=== PATIENT | female | born 1960 | race Caucasian/White ===

== ENCOUNTER 2017-01-10 15:10 | Emergency (ER) | payer OTHER, MEDICAID ==
[~2017-01-10] VITALS: Ht 157.5 cm; Wt 56.7 kg
[~2017-01-10 15:10] MED LIST: FLUO40CA6 PO
[2017-01-10 15:13] VITALS: BP 129/65
--- NOTE | 2017-01-10 18:00 | NUR ---
PT TO BED 6 AT THIS TIME.
--- NOTE | 2017-01-10 18:00 | NUR ---
Pt ambulated to bed 6.
--- NOTE | 2017-01-10 18:05 | NUR ---
56/F BIB FAMILY C/O RASH TO FACE & BODY & NON RADIATING LEFT CHEST,SOB, THROAT COMPLAINT, AND ITCHY SKIN X2 DAYS.PATIENT DENIES N/V/D; SKIN IS PINK/WARM/DRY; AAOX4 WITH EVEN AND STEADY GAIT; LUNGS CLEAR BL; HR EVEN AND REGULAR; PT DENIES ANY FEVER, OR COUGH AT THIS TIME; PATIENT STATES PAIN OF 10/10 AT THIS TIME; VSS; PATIENT POSITIONED FOR COMFORT; HOB ELEVATED; BEDRAILS UP X2; BED DOWN. ER MD MADE AWARE OF PT STATUS.
--- NOTE | 2017-01-10 19:15 | NUR ---
PT C/O SORE THROAT X 2 DAYS AND COUGHING SINCE THIS AM. PT STATES DIFFICULT TO EAT FOOD DUE TO SORE THROAT AND STATES HAS RASH ON CHEST.
--- NOTE | 2017-01-10 19:15 | NUR ---
REPORT RECEIVED FROM ESSIE MAHONEY.
--- NOTE | 2017-01-10 19:15 | NUR ---
GAVE REPORT TO ESSIE SPENCE
[2017-01-10] MEDS ORDERED: NACL 0.9% 1,000 ML IV ONE (19:40)
[2017-01-10] MEDS ORDERED: methylPREDNISolone SS 125 MG/2 ML VIAL IVP ONE (19:40)
--- NOTE | 2017-01-10 20:13 | NUR ---
LABS AND PIV STARTED. PT TOLERATED WELL. XRAY DONE AT BEDSIDE.
[2017-01-10 20:15] LABS: BASOPHILS # (AUTO) 0.2 K/uL (0.00-0.22); BASOPHILS % (AUTO) 2.7 % (0.0-2.0); EOSINOPHILS % (AUTO) 0.6 % (0.0-4.0); HEMATOCRIT 44.3 % (36-48); HEMOGLOBIN 14.8 g/dL (12.0-16.0); LYMPHOCYTES # (AUTO) 1.1 K/uL (2.5-16.5); LYMPHOCYTES % (AUTO) 18.1 % (20.5-51.1); MEAN CORPUSCULAR HEMOGLOBIN 31 pg (27-31); MEAN CORPUSCULAR HGB CONC 33 g/dL (33-37); MEAN CORPUSCULAR VOLUME 94 fL (80-94); MONOCYTES # (AUTO) 0.6 K/uL (0.8-1.0); MONOCYTES % (AUTO) 9.4 % (1.7-9.3); NEUTROPHILS # (AUTO) 4.1 K/uL (1.8-7.7); NEUTROPHILS % (AUTO) 69.2 % (42.2-75.2); PLATELET COUNT (AUTO) 186 K/uL (140-450); RED BLOOD CELL COUNT(AUTO) 4.73 MIL/uL (4.20-5.40); RED CELL DISTRIBUTION WIDTH 12.3 % (11.6-13.7)
[2017-01-10 20:26] LABS: ANION GAP 13.4 (8-16); CALCIUM 8.6 mg/dL (8.5-10.1); CARBON DIOXIDE 27.2 mmol/L (21-32); CREATININE 0.7 mg/dL (0.6-1.3); POTASSIUM 3.6 mmol/L (3.5-5.1)
[2017-01-10 20:32] LABS: ALBUMIN 3.8 g/dL (3.4-5.0); PARTIAL THROMBOPLASTIN TIME 26.8 secs (22-35.6); PROTHROMBIN TIME 9.8 secs (10.8-13.4); TOTAL BILIRUBIN 1.6 mg/dL (0.0-1.0); TOTAL PROTEIN, SERUM 7.1 g/dL (6.4-8.2)
[2017-01-10 20:32] LABS: AMPHETAMINE, URINE NEG. ng/ml (NEG <=1000); BARBITURATE, URINE NEG. ng/ml (NEG <=200); BENZODIAZEPINE, URINE NEG. ng/mL (NEG <=200); CANNABINOID, URINE NEG. ng/mL (NEG <=50); COCAINE, URINE NEG. ng/mL (NEG <=300); OPIATE, URINE NEG. ng/mL (NEG <=2000); PHENCYCLIDINE SCREEN,URINE NEG. ng/mL (NEG <=25)
[2017-01-10 21:18] VITALS: BP 122/85
== END 2017-01-10 21:18 | disposition home or self-care (01) ==
LOC: MED 15:10
DX: T63.441A Toxic effect of venom of bees, accidental (unintentional), initial encounter (principal); R03.0 Elevated blood-pressure reading, without diagnosis of hypertension; J44.9 Chronic obstructive pulmonary disease, unspecified; Y92.89 Other specified places as the place of occurrence of the external cause
CPT/HCPCS: 36415; 71010; 80053; 80305; 81002; 81025; 84484; 85025; 85610; 85730; 93005; 96361; 96374; 99285; J2930; J7030; Q0092

== ENCOUNTER 2017-07-20 17:20 | Emergency (ER) | payer OTHER, MEDICAID ==
[~2017-07-20] VITALS: Ht 157.5 cm; Wt 62.7 kg
[2017-07-20 18:23] VITALS: BP 104/75
--- NOTE | 2017-07-20 19:57 | NUR ---
PT TAKEN TO BED 1
--- NOTE | 2017-07-20 20:00 | NUR ---
56/F CAME IN W C/O 06/12 LEFT WRIST, ELBOW AND SHOULDER PAIN S/P MECHANICAL FALL FROM LADDER. DENIES LOC, HEAD TRAUMA, N/T TO LUE OR ANY OTHER INJURIES. SWELLING TO LT WRIST/HAND NOTED. PMH: OSTEOARTHRITIS, DENIES OTC
[2017-07-20] MEDS ORDERED: oxyCODONE/APAP 5/325 MG 1 TAB TAB PO ONE (20:05)
[2017-07-20] MEDS ORDERED: KETOROLAC 60 MG/2 ML VIAL IM ONE (20:05)
--- NOTE | 2017-07-20 20:48 | NUR ---
PT TAKEN TO XRAY
[2017-07-20] MEDS ORDERED: CYCLOBENZAPRINE 10 MG TAB PO ONE (21:15)
[2017-07-20 22:29] VITALS: BP 116/85
--- NOTE | 2017-07-20 22:30 | NUR ---
Patient discharged with v/s stable. Written and verbal after care instructions given and explained. Patient alert, oriented and verbalized understanding of instructions. Carried with to car. All questions addressed prior to discharge. ID band removed. Patient advised to follow up with PMD. Rx of NORCO AND IBUPROFEN given. Patient educated on indication of medication including possible reaction and side effects. SLING AND SPLINT CARE TEACHING PROVIDED. Opportunity to ask questions provided and answered.
== END 2017-07-20 22:30 | disposition home or self-care (01) ==
LOC: MED 17:20
DX: S52.502A Unspecified fracture of the lower end of left radius, initial encounter for closed fracture (principal); S52.612A Displaced fracture of left ulna styloid process, initial encounter for closed fracture; J44.9 Chronic obstructive pulmonary disease, unspecified; Z88.8 Allergy status to other drugs, medicaments and biological substances; W11.XXXA Fall on and from ladder, initial encounter; Y93.89 Activity, other specified; Y92.89 Other specified places as the place of occurrence of the external cause; Y99.8 Other external cause status
CPT/HCPCS: 29125; 73030; 73080; 73110; 96372; 99284; J1885

== ENCOUNTER 2017-07-30 13:06 | Inpatient (IN) | payer OTHER, MEDICAID ==
[~2017-07-30] VITALS: Ht 157.5 cm; Wt 59.9 kg
[2017-07-30 13:09] VITALS: BP 106/73
--- NOTE | 2017-07-30 13:20 | NUR ---
PATIENT PRESENTS TO ED WITH LEFT ANTERIOR CHEST WALL PAIN, >5 EPISODES OF WATERY STOOLS TODAY AND NAUSEA . PT STATES ; SKIN IS PINK/WARM/DRY; AAOX4 LUNGS CLEAR BL; HR EVEN AND REGULAR; PT DENIES ANY FEVER SOB, OR COUGH AT THIS TIME; PATIENT STATES PAIN OF 10/10 AT THIS TIME; VSS; PATIENT POSITIONED FOR COMFORT; HOB ELEVATED; BEDRAILS UP X2; BED DOWN. ER MD MADE AWARE OF PT STATUS.
[2017-07-30 14:11] LABS: BASOPHILS # (AUTO) 0.3 K/uL (0.00-0.22); HEMATOCRIT 39.8 % (36-48); HEMOGLOBIN 13.2 g/dL (12.0-16.0); LYMPHOCYTES # (AUTO) 0.7 K/uL (2.5-16.5); MEAN CORPUSCULAR HEMOGLOBIN 32 pg (27-31); MEAN CORPUSCULAR HGB CONC 33 g/dL (33-37); MEAN CORPUSCULAR VOLUME 96 fL (80-94); MONOCYTES # (AUTO) 0.3 K/uL (0.8-1.0); PLATELET COUNT (AUTO) 269 K/uL (140-450); RED BLOOD CELL COUNT(AUTO) 4.16 MIL/uL (4.20-5.40); RED CELL DISTRIBUTION WIDTH 14.8 % (11.6-13.7); WHITE BLOOD COUNT (AUTO) 4.3 K/uL (4.8-10.8)
[2017-07-30 14:21] LABS: BARBITURATE, URINE NEG. ng/ml (NEG <=200); BENZODIAZEPINE, URINE NEG. ng/mL (NEG <=200); CANNABINOID, URINE NEG. ng/mL (NEG <=50); COCAINE, URINE NEG. ng/mL (NEG <=300); OPIATE, URINE NEG. ng/mL (NEG <=2000); PHENCYCLIDINE SCREEN,URINE NEG. ng/mL (NEG <=25)
[2017-07-30 14:36] LABS: ANION GAP 12.2 (8-16); CARBON DIOXIDE 24.2 mmol/L (21-32); CREATININE 0.6 mg/dL (0.6-1.3); POTASSIUM 3.4 mmol/L (3.5-5.1)
[2017-07-30 14:44] LABS: ALBUMIN 3.3 g/dL (3.4-5.0); TOTAL BILIRUBIN 1.2 mg/dL (0.0-1.0)
--- NOTE | 2017-07-30 15:03 | NUR ---
PT AWAKEN BY MD--- C/O FEELING ANXIOUS, REQUESTING ATIVAN---MD DENIED PT HAS BEEN RESTING WITH OU CLOSED, NO S/S RESP DISTRESS, NO TACHYCARDIA, NO TREMORS NOTED AT THIS TIME. WILL CONTINUE TO OBSERVE FOR PAIN CONTROL
[2017-07-30] MEDS ORDERED: ONDANSETRON 4 MG/2 ML VIAL IVP PRN (15:35)
[2017-07-30] MEDS ORDERED: DEXT 5% /NACL 0.9% 1,000 ML IV SCH (15:35)
[2017-07-30] MEDS ORDERED: HYDROcodone/APAP 5/325 MG 1 TAB TAB PO PRN (15:35)
[2017-07-30] MEDS ORDERED: ZOLPIDEM 5 MG TAB PO PRN (15:35)
[2017-07-30] MEDS ORDERED: ALUMINUM HYD/MAG/SIMETHICONE 30 ML UDC PO PRN (15:35)
[2017-07-30] MEDS ORDERED: NITROGLYCERIN 0.4 MG TAB SL PRN (15:35)
[2017-07-30] MEDS ORDERED: ACETAMINOPHEN 325 MG TAB PO PRN (15:35)
--- NOTE | 2017-07-30 16:16 | NUR ---
Pt transferred to Tele via [facility] REPORT GIVEN TO Barbara-A REPORT GIVEN TO DIONI FOUNTAIN
[2017-07-30] MEDS ORDERED: ECOTRIN 81 MG TABEC PO ONE (16:25)
[2017-07-30 16:35] VITALS: BP 126/86
--- NOTE | 2017-07-30 16:35 | NUR ---
RECEIVED PT REPORT FROM NIGHT NURSE. PT IS AAOX4 AND SHOWS NO S/S OF ACUTE DISTRESS ON RA. PT STATES CHEST PAIN, AND WRIST PAIN BOTH 06/12 WILL MEDICATE WITH AVAILABLE PRN PAIN MEDICATION, NOTED CAST ON THE LEFT ARM OTHERWISE SKIN IS INTACT, ON TELE MONITOR. IV NOTED ON THE RT HAND WITH IVF'S INFUSING WELL WITH NO SIGNS OF INFILTRATION. DISCUSSED POC WITH PT AND SHE VERBALIZED UNDERSTANDING. THE BED IS IN LOW POSITION WITH CALL LIGHT WITHIN REACH. WILL CONTINUE TO MONITOR. Addendum: 07/30/17 at 1852 by Mamie Mccrary RN RECEIVED REPORT FROM ER NURSE. NOT NIGHT NURSE.
[2017-07-30] MEDS ORDERED: ASPIRIN 81 MG TAB.CHEW PO SCH (17:00)
[2017-07-30] MEDS: LORazepam 1 MG TAB PO PRN (18:14)
--- NOTE | 2017-07-30 18:16 | NUR ---
ADMINISTERED ATIVAN 1 MG PO FOR PT C/O ANXIETY.
[2017-07-30] MEDS ORDERED: PROMETHAZINE 25 MG/ML VIAL IVP PRN (18:25)
--- NOTE | 2017-07-30 18:35 | NUR ---
PT IS AAOX4 AND SHOWS NO S/S OF ACUTE DISTRESS ON ROOM AIR. PT DENIES PAIN AND SOB. ALL NEEDS MET AT THIS TIME. WILL CONTINUE TO MONITOR.
--- NOTE | 2017-07-30 18:40 | NUR ---
RECEIVED ORDERS FROM DR BRANDT REGARDING PT IVF'S TO D5 1/2 NS AT 100 ML/HR, K RIDER X ONCE, AND DC ZOFRAN TO PHENERGAN 15 MG IVP Q6H. WILL PLACE ORDERS.
[2017-07-30] MEDS ORDERED: KCL 20 MEQ/WATER INJ PREMIX 200 ML IV SCH (19:00)
[2017-07-30] MEDS: MORPHINE SULFATE 2 MG/ML SYR IVP PRN (19:02)
[2017-07-30] MEDS: DEXT 5% / NACL 0.45% 1,000 ML IV SCH (19:02)
--- NOTE | 2017-07-30 19:30 | NUR ---
PT REPORT GIVEN AT BEDSIDE TO NIGHT NURSE PT ENDORSED IN STABLE CONDITION.
--- NOTE | 2017-07-30 19:31 | NUR ---
RECD. RESTING IN BED, AWAKE, A/OX2. RESPIRATION EVEN AND UNLABORED. K-RIDER 20 MEQ INFUSING, RIGHT HAND G22. REORIENTED TO HOSPITAL SETTING. LEFT ARM WITH CAST. PAIN IN THE LEFT ARM 02/10, WAS MEDICATED BY AM NURSE AT 1902. PLAN OF CARE FOR THE NIGHT DISCUSSED, AGREED. SAFETY MEASURES ENFORCED. WANTS SLEEPING PILL, STATED UNABLE TO SLEEP FOR A COUPLE OF DAYS, WILL MEDICATE ORDERED.
[2017-07-30 20:00] VITALS: BP 117/70
--- NOTE | 2017-07-30 20:00 | NUR ---
COMPLAINING OF PAIN IN THE IV SITE, EXPLAINED IT IS DUE TO THE K RIDER. APPLIED COLD COMPRESS TO THE IV SITE TO DECREASE PAIN.
[2017-07-30] MEDS: LORazepam 1 MG TAB PO SCH (20:30)
--- NOTE | 2017-07-30 20:30 | NUR ---
COMPLAINING OF UNABLE TO SLEEP FOR TWO DAYS NOW, MEDICATED WITH AMBIEN 5 MG. ORDERED.
--- NOTE | 2017-07-30 21:30 | NUR ---
STILL AWAKE, COMPLAINING OF MORPHINE DOES NOT TAKE AWAY HER PAINS COMPLETELY. WILL INFORM .
--- NOTE | 2017-07-30 22:00 | NUR ---
CRYING COMPLAINING OF PAIN IN THE IV SITE, WILL CALL MD TO CHANGED K RIDER TO PO MEDICATION.
[2017-07-30] MEDS ORDERED: POTASSIUM CHLORIDE 10 MEQ TABER PO SCH (22:30)
[2017-07-30 23:14] LABS: CREATINE KINASE MB 0.6 ng/mL (0-3.6)
[2017-07-31] VITALS: BP 124/92
[2017-07-31] MEDS: MORPHINE SULFATE 2 MG/ML SYR IVP PRN (00:47)
[2017-07-31] MEDS: LORazepam 1 MG TAB PO PRN (01:01)
--- NOTE | 2017-07-31 01:01 | NUR ---
WITH ANXIETY, MEDICATED WITH ATIVAN 1 MG. PO.
--- NOTE | 2017-07-31 02:05 | NUR ---
NO ANXIETY, SLEEPING COMFORTABLY.
[2017-07-31 04:00] VITALS: BP 121/74
[2017-07-31] MEDS: DEXT 5% / NACL 0.45% 1,000 ML IV SCH ×2 (04:37→06:07)
[2017-07-31] MEDS: LORazepam 1 MG TAB PO SCH ×2 (06:06→12:10)
[2017-07-31 06:21] LABS: HEMATOCRIT 38.1 % (36-48); MEAN CORPUSCULAR HEMOGLOBIN 33 pg (27-31); MEAN CORPUSCULAR HGB CONC 34 g/dL (33-37); MEAN CORPUSCULAR VOLUME 96 fL (80-94); PLATELET COUNT (AUTO) 229 K/uL (140-450); RED BLOOD CELL COUNT(AUTO) 3.97 MIL/uL (4.20-5.40); RED CELL DISTRIBUTION WIDTH 14.1 % (11.6-13.7); WHITE BLOOD COUNT (AUTO) 5.8 K/uL (4.8-10.8)
[2017-07-31 06:45] LABS: ANION GAP 9.6 (8-16); CARBON DIOXIDE 26.1 mmol/L (21-32); CREATININE 0.6 mg/dL (0.6-1.3); POTASSIUM 3.7 mmol/L (3.5-5.1)
[2017-07-31 06:53] LABS: MAGNESIUM 1.4 mg/dL (1.8-2.4); PHOSPHORUS 2.9 mg/dL (2.5-4.9)
[2017-07-31 06:56] LABS: EOSINOPHILS % (MANUAL) 2 % (0-4); LYMPHOCYTES % (MANUAL) 36 % (20-46); MONOCYTES % (MANUAL) 6 % (5-12)
--- NOTE | 2017-07-31 06:57 | NUR ---
ABLE TO SLEEP WELL. CONDITION REMAIN STABLE. WILL ENDORSE TO AM NURSE FOR CONTINUITY OF CARE.
--- NOTE | 2017-07-31 07:05 | NUR ---
RECIEVED REPORT FROM CORROSION ENGINEER NURSE. PATIENT IS SLEEPING, AROUSABLE BY VOICE. NO DISTRESS NOTED. IN STABLE CONDITION. RESPIRATIONS EVEN, UNLABORED ON ROOM AIR. AAOX2, CALM, COOPERATIVE, SKIN COLOR APPROPRIATE TO ETHNICITY, WARM TO TOUCH. SKIN IS INTACT. NO PERIPHERAL EDEMA NOTED. ABDOMEN SOFT, NON-DISTENDED. LUNGS CTA ON ALL LOBES. IV SITE IS INTACT, PATENT, AND INFUSING IVF ORDERS. DENIES ANY PAIN AT THIS TIME. REVIEWED PLAN OF CARE WITH PATIENT. PATIENT VERBALIZED UNDERSTANDING. SAFETY MEASURES IN PLACE, CALL LIGHT WITHIN REACH, FALL PREVENTIONS IN PLACE. WILL CONTINUE TO MONITOR.
[2017-07-31 07:07] LABS: CREATINE KINASE MB 0.4 ng/mL (0-3.6)
[2017-07-31 08:00] VITALS: BP 111/64
[2017-07-31] MEDS ORDERED: THIAMINE 100 MG TAB PO SCH (09:00)
[2017-07-31] MEDS ORDERED: FOLIC ACID 1 MG TAB PO SCH (09:00)
[2017-07-31] MEDS ORDERED: MULTIVITAMIN 1 TAB PO SCH (09:00)
[2017-07-31] MEDS ORDERED: DOCUSATE SODIUM 100 MG GELCAP PO SCH (09:00)
[2017-07-31] MEDS ORDERED: ASPIRIN 81 MG TAB.CHEW PO SCH (09:00)
--- NOTE | 2017-07-31 09:08 | NUR ---
PATIENT SITTING IN BED WITH BREAKFAST TRAY IN FRONT. NO DISTRESS NOTED. DENIES ANY PAIN AT THIS TIME. RESPIRATIONS EVEN, UNLABORED, ON ROOM AIR. CONDITION UNCHANGED. MEDICATIONS DUE GIVEN. SAFETY MEASURES IN PLACE, CALL LIGHT WITHIN REACH, FALL PREVENTIONS IN PLACE. WILL CONTINUE TO MONITOR.
--- NOTE | 2017-07-31 09:10 | NUR ---
PATIENT HAS BEEN SCREENED AND CATEGORIZED HIGH NUTRITION RISK. PATIENT WILL BE SEEN WITHIN 1-2 DAYS OF ADMISSION. 07/31/17-08/01/[address]
--- NOTE | 2017-07-31 11:30 | NUR ---
PATIENT SITTING IN BED WATCHING TV. NO DISTRESS NOTED. PAIN WITHIN TOLERABLE AT THIS TIME. CONDITION UNCHANGED. RESPIRATIONS EVEN, UNLABORED ON ROOM AIR. SAFETY MEASURES IN PLACE, CALL LIGHT WITHIN REACH. WILL CONTINUE TO MONITOR.
[2017-07-31 12:00] VITALS: BP 132/82
--- NOTE | 2017-07-31 12:15 | NUR ---
PATIENT SITTING IN BED WATCHING TV WITH COMPLAINTS OF PAIN, WILL MEDICATE WITH NORCO. NO DISTRESS NOTED. CONDITION UNCHANGED. SAFETY MEASURES IN PLACE, CALL LIGHT WITHIN REACH. WILL CONTINUE TO MONITOR.
--- NOTE | 2017-07-31 12:17 | NUR ---
CM NOTE PER GAS DISTRIBUTION AND EMERGENCY CLERK JESSICA, REVIEWS SHOULD ONLY BE SENT TO [facility] [phone] # [phone]. INITIAL REVIEW FAXED TO [facility] [phone] # [phone]. RECEIVED CALL FROM [facility] [phone] WHO SAID THEY WANT TO TRANSFER THEIR PATIENT TO THEIR CONTRACTED FACILITY, [facility]. I INFORMED DR. Donny BRANDT # [phone] AND HE SAID PATIENT IS STABLE FOR TRANSFER TO CONTRACTED FACILITY. RECEIVED ORDER TO TRANSFER PATIENT TO CONTRACTED FACILITY. PER [facility] THEY ARE LOOKING FOR A BED IN [facility] AND ONCE A BED IS AVAILABLE THEY WILL GIVE OUR HOSPITAL A CALL. I GAVE HIM THE NUMBER TO THE NURSING FLOOR AND CHARGE NURSE WHERE PATIENT IS IN CASE QA BED BECOMES AVAILABLE AT A LATER TIME TODAY. CHARGE NURSE PATRICIA AND PATIENT AWARE.
--- NOTE | 2017-07-31 13:09 | NUR ---
CM NOTE PER [facility] PH# [phone], PATIENT IS GOING TO [facility] [address] [facility] [address], [address], ACCEPTING DR. KARLA QUEZADA, FOR MED TRANSPORTATION [facility] AUTH# [id number]. PER CHARGE NURSE PATRICIA, PATIENT DOES NOT WANT TO GO TO [facility] AND WANTS TO GO AMA. I INFORMED [facility]. PER [facility] KOTHAR[facility], TO CALL/INFORM [facility] ONCE PATIENT IS PHYSICALLY OUT OF THE HOSPITAL. I ALSO GAVE ORVILLE KOTHARI THE NUMBER TO THE CHARGE NURSE TO THE NURSING FLOOR WHERE THE PATIENT IS. CHARGE NURSE PATRICIA AWARE.
--- NOTE | 2017-07-31 13:10 | NUR ---
PATIENT IS SITTING IN BED ALL DRESSED UP WITH SISTER AT BEDSIDE. PATIENT DOES NOT WANT TO BE TRANSFERRED TO CONTRACTED HOSPITAL AT [facility] FOR CONTINUITY OF CARE. PATIENT WISHES TO GO BACK TO [facility] INSTEAD. PATIENT WISHES TO LEAVE [facility]MA. EXPLAINED TO PATIENT/SISTER THE RISKS OF LEAVING [place]. THEY VERBALIZED UNDERSTANDING AND WISHED TO PROCEED. REMOVED IV SITE WITH MINIMAL BLOOD AND LUMEN COMPLETELY INTACT. ID BANDS REMOVED. PATIENT SIGNED AMA FORM AND ATTENDING MD, ALREADY AWARE OF PATIENT WANTING TO LEAVE [place]. PATIENT ESCORTED DOWN TO LOBBY VIA AMBULATION WITH STEADY GAIT. PATIENT LEFT AMA IN STABLE CONDITION WITH SISTER DRIVING HER HOME.
== END 2017-07-31 13:15 | disposition left against medical advice (07) | DRG 313 ==
LOC: MED 13:06 → MTU 15:42
PROVIDERS: ADMIT Preventive Medicine Preventive Medicine/Occupational Environmental Medicine; ATTEND Preventive Medicine Preventive Medicine/Occupational Environmental Medicine
DX: R07.89 Other chest pain (principal); I25.10 Atherosclerotic heart disease of native coronary artery without angina pectoris; J18.9 Pneumonia, unspecified organism; F10.229 Alcohol dependence with intoxication, unspecified; F32.9 Major depressive disorder, single episode, unspecified; F41.9 Anxiety disorder, unspecified; J44.9 Chronic obstructive pulmonary disease, unspecified; G47.00 Insomnia, unspecified; K29.20 Alcoholic gastritis without bleeding; G89.29 Other chronic pain; Z88.8 Allergy status to other drugs, medicaments and biological substances; Z79.899 Other long term (current) drug therapy
CPT/HCPCS: 36415; 80048; 80053; 80305; 82550; 82553; 83690; 83735; 84100; 84484; 85025; 93005; 99285; G0482; J2270; J3480

== ENCOUNTER 2018-09-09 17:01 | Emergency (ER) | payer OTHER, MEDICAID ==
[~2018-09-09] VITALS: Ht 157.5 cm; Wt 63.5 kg
--- NOTE | 2018-09-09 17:24 | NUR ---
PT BIBA BLS TO ER BED 04
[2018-09-09 17:25] VITALS: BP 140/96
--- NOTE | 2018-09-09 17:35 | NUR ---
PATIENT BIB EMS, PATIENT IS REQUESTING HELP, CALLED 911, PATIENT STATES ETOH INTOXICATION FOR 5 DAYS STRAIGHT. PATIENT STATES SHE HAS BEEN DRINKING DUE TO BACK PAIN, REPORTS HAVING ATHRITIS IN HER SPINE. N/V/D, WEAKNESS, DIZZINESS, FELLS HANDS TREMBLE, HEADACHE 10/10 X 1 DAY. PATIENT DENIES SOB, CP, COUGH, ABDOMINAL DISCOMFORT. PT.IS ALERT BUT UNAWARE OF TIME OR DATE, UNSTEADY GAIT, SAFETY PRECAUTIONS IN PLACE.
--- NOTE | 2018-09-09 17:58 | NUR ---
LAB AT BEDSIDE.
[2018-09-09 18:12] LABS: BASOPHILS # (AUTO) 0.1 K/uL (0.00-0.22); HEMATOCRIT 45.5 % (36-48); HEMOGLOBIN 14.9 g/dL (12.0-16.0); LYMPHOCYTES # (AUTO) 1.5 K/uL (2.5-16.5); LYMPHOCYTES % (AUTO) 28.9 % (20.5-51.1); MEAN CORPUSCULAR HEMOGLOBIN 30 pg (27-31); MEAN CORPUSCULAR HGB CONC 33 g/dL (33-37); MEAN CORPUSCULAR VOLUME 92.8 fL (80-94); MONOCYTES # (AUTO) 0.4 K/uL (0.8-1.0); MONOCYTES % (AUTO) 8.2 % (1.7-9.3); NEUTROPHILS # (AUTO) 3.2 K/uL (1.8-7.7); NEUTROPHILS % (AUTO) 61.9 % (42.2-75.2); PLATELET COUNT (AUTO) 245 K/uL (140-450); RED CELL DISTRIBUTION WIDTH 13.4 % (11.6-13.7); WHITE BLOOD COUNT (AUTO) 5.2 K/uL (4.8-10.8)
[2018-09-09 18:28] LABS: ANION GAP 14.3 (8-16); CARBON DIOXIDE 28.1 mmol/L (21-32); CREATININE 0.6 mg/dL (0.6-1.3); POTASSIUM 3.4 mmol/L (3.5-5.1)
--- NOTE | 2018-09-09 19:10 | NUR ---
Note monse in EDM - 09/09/18 at 1924 by [email or web address] PATIENT STATES SHE IS PAIN BACK 05/13, PATIENT POSITION CHANGEG. AWARE OF PAIN. NO FURTHER ORDERS.
--- NOTE | 2018-09-09 19:10 | NUR ---
PATIENT STATES SHE IS IN PAIN BACK 05/13, PATIENT POSITION CHANGED. MD AWARE OF PAIN. NO FURTHER ORDERS.
[2018-09-09] MEDS ORDERED: NACL 0.9% 2,000 ML IV ONE (20:35)
[2018-09-09] MEDS ORDERED: PROMETHAZINE 25 MG/ML VIAL IVP ONE (20:35)
[2018-09-09] MEDS ORDERED: METOCLOPRAMIDE 10 MG/2 ML INJ VIAL IVP ONE (20:35)
--- NOTE | 2018-09-09 21:03 | NUR ---
Dr. Mac evaluating patient at bedside.
[2018-09-09] MEDS ORDERED: LORazepam 2 MG/ML VIAL IVP ONE (21:05)
[2018-09-09 21:18] LABS: ACETAMINOPHEN < 0.5 ug/ml (10-30)
[2018-09-09 21:19] LABS: ASPARTATE AMINOTRANSFERASE 40 U/L (15-37); BILIRUBIN,DIRECT 0.2 mg/dL (0.0-0.3); SALICYLATE < 2.8 mg/dL (2.8-20.0); TOTAL BILIRUBIN 0.9 mg/dL (0.0-1.0)
--- NOTE | 2018-09-09 21:19 | NUR ---
PT RETURN FROM RADIOLOGY
[2018-09-09 21:20] LABS: ALBUMIN 3.7 g/dL (3.4-5.0); MAGNESIUM 2.2 mg/dL (1.8-2.4)
--- NOTE | 2018-09-09 21:24 | NUR ---
Pt report given to LOUISA FOUNTAIN. Transfer of care at this time.
--- NOTE | 2018-09-09 21:25 | NUR ---
ASSUMED CARE OF PT AT THIS TIME. PT AWAITS CT RESULTS AND MD DISPOSITION. LORA. VSS. WILL CONTINUE TO MONITOR.
[2018-09-09 21:44] LABS: LIPASE 259 U/L (73-393)
[2018-09-09] MEDS ORDERED: CALCIUM GLUCONATE 10% 1000 MG/10 ML VIAL IVP ONE (22:00)
[2018-09-09 22:04] LABS: APPEARANCE,URINE CLEAR (CLEAR); BILIRUBIN,URINE NEGATIVE (NEGATIVE); BLOOD, URINE 1+ (NEGATIVE); COLOR,URINE YELLOW (YELLOW); LEUKOCYTE ESTERASE ,URINE 1+ (NEGATIVE); NITRITE, URINE NEGATIVE (NEGATIVE); UGLUCOSE NEGATIVE (NEGATIVE)
[2018-09-09 22:05] LABS: BARBITURATE, URINE NEG. ng/ml (NEG <=200); BENZODIAZEPINE, URINE NEG. ng/mL (NEG <=200); CANNABINOID, URINE NEG. ng/mL (NEG <=50); COCAINE, URINE NEG. ng/mL (NEG <=300); OPIATE, URINE NEG. ng/mL (NEG <=2000); PHENCYCLIDINE SCREEN,URINE NEG. ng/mL (NEG <=25)
[2018-09-09 22:26] LABS: RBC,URINE 0-5 (RARE) /HPF (0-5); WBC,URINE 0-5 (RARE) /HPF (0-5)
[2018-09-09 22:55] VITALS: BP 133/91
--- NOTE | 2018-09-09 22:55 | NUR ---
Patient discharged with v/s stable. Written and verbal after care instructions given and explained. Patient alert, oriented and verbalized understanding of instructions. Ambulatory with steady gait. All questions addressed prior to discharge. ID band removed. Patient advised to follow up with PMD. Rx of CHLORDIAZEPOXIDE given. Patient educated on indication of medication including possible reaction and side effects. Opportunity to ask questions provided and answered.
== END 2018-09-09 22:55 | disposition home or self-care (01) ==
LOC: MED 17:01
DX: E83.51 Hypocalcemia (principal); F10.129 Alcohol abuse with intoxication, unspecified; F41.9 Anxiety disorder, unspecified; J44.9 Chronic obstructive pulmonary disease, unspecified; I51.9 Heart disease, unspecified; F32.9 Major depressive disorder, single episode, unspecified; Z88.8 Allergy status to other drugs, medicaments and biological substances; Y90.8 Blood alcohol level of 240 mg/100 ml or more
CPT/HCPCS: 36415; 74176; 80048; 80076; 80305; 81001; 82247; 82248; 83690; 83735; 84484; 85025; 87086; 93005; 96374; 96375; 99284; G0480; G0482; J0610; J2060; J2550; J2765; J7030

== ENCOUNTER 2018-10-11 08:55 | Inpatient (IN) | payer OTHER, MEDICAID ==
[~2018-10-11] VITALS: Ht 165.1 cm; Wt 65.8 kg
--- NOTE | 2018-10-11 08:57 | NUR ---
PT BIBA ALS TO BED 4
[2018-10-11 08:58] VITALS: BP 121/81
[2018-10-11] MEDS ORDERED: NACL 0.9% 1,000 ML IV ONE (09:15)
--- NOTE | 2018-10-11 09:15 | NUR ---
patient unable to urinate at this time.
--- NOTE | 2018-10-11 09:20 | NUR ---
58 yo f biba [facility] als w/ c/o sternal wall CP since last night, pt states that it feels like an anxiety attack. reports that her arms, fingers, and toes feel numb and tingly. pt reports that her last drink was sometime this morning, and she was drinking vodka. pt reports drinking binder since sunday, hard liquor only. pt tachy 110. NSR on 12 lead ekg in the field. pt is slurring words and rambling during triage assessment. PERRLA intact. pt reports that she has been vomiting blood intermittently, hx of stomach ulcers. pt complaining of L upper abd and flank pain. abd soft, non-tender. er md notified of pt status. pt needs met, safety precautions in place. will continue to monitor.
--- NOTE | 2018-10-11 09:30 | NUR ---
RADIOLOGY TRANSPORTER AT BEDSIDE.
--- NOTE | 2018-10-11 09:31 | NUR ---
IV STARTED ON PATIENT IN RAC NO COMPLAINTS OF PAIN WHEN FLUSHED, PATENT NO SWEELING OR REDNESS NOTED. GOOD BLOOD RETURN NOTED.
[2018-10-11] MEDS ORDERED: LORazepam 2 MG/ML VIAL IVP ONE ×2 (09:35→11:50)
[2018-10-11 09:39] LABS: BASOPHILS # (AUTO) 0.1 K/uL (0.00-0.22); BASOPHILS % (AUTO) 0.6 % (0.0-2.0); HEMOGLOBIN 15.1 g/dL (12.0-16.0); LYMPHOCYTES # (AUTO) 2.1 K/uL (2.5-16.5); LYMPHOCYTES % (AUTO) 12.3 % (20.5-51.1); MEAN CORPUSCULAR HEMOGLOBIN 30 pg (27-31); MEAN CORPUSCULAR HGB CONC 33 g/dL (33-37); MEAN CORPUSCULAR VOLUME 92.3 fL (80-94); MONOCYTES # (AUTO) 0.6 K/uL (0.8-1.0); MONOCYTES % (AUTO) 3.2 % (1.7-9.3); NEUTROPHILS # (AUTO) 14.6 K/uL (1.8-7.7); NEUTROPHILS % (AUTO) 83.9 % (42.2-75.2); PLATELET COUNT (AUTO) 311 K/uL (140-450); RED BLOOD CELL COUNT(AUTO) 4.98 MIL/uL (4.20-5.40); RED CELL DISTRIBUTION WIDTH 14.5 % (11.6-13.7); WHITE BLOOD COUNT (AUTO) 17.4 K/uL (4.8-10.8)
[2018-10-11 09:53] LABS: ANION GAP 24.4 (8-16); CHLORIDE 106 mmol/L (98-107); CREATININE 0.8 mg/dL (0.6-1.3); GFR ARICAN-AMERICAN 95 mL/min (>90); GLUCOSE 86 mg/dL (74-106); POTASSIUM 3.4 mmol/L (3.5-5.1); SODIUM SERUM 140 mmol/L (136-145); UREA NITROGEN, BLOOD 19 mg/dL (7-18)
[2018-10-11 09:59] LABS: ALBUMIN 3.8 g/dL (3.4-5.0); ASPARTATE AMINOTRANSFERASE 49 U/L (15-37); PROTHROMBIN TIME 10.1 secs (10.8-13.4); TOTAL BILIRUBIN 1.2 mg/dL (0.0-1.0)
[2018-10-11 10:00] LABS: ACETAMINOPHEN < 0.5 ug/ml (10-30); SALICYLATE < 2.8 mg/dL (2.8-20.0)
[2018-10-11 10:33] LABS: BILIRUBIN,URINE NEGATIVE (NEGATIVE); COLOR,URINE YELLOW (YELLOW); LEUKOCYTE ESTERASE ,URINE TRACE (NEGATIVE); NITRITE, URINE NEGATIVE (NEGATIVE); UGLUCOSE NEGATIVE (NEGATIVE)
[2018-10-11 10:34] LABS: BARBITURATE, URINE NEG. ng/ml (NEG <=200); BENZODIAZEPINE, URINE NEG. ng/mL (NEG <=200); CANNABINOID, URINE NEG. ng/mL (NEG <=50); COCAINE, URINE NEG. ng/mL (NEG <=300); OPIATE, URINE NEG. ng/mL (NEG <=2000); PHENCYCLIDINE SCREEN,URINE NEG. ng/mL (NEG <=25)
[2018-10-11 10:52] LABS: APPEARANCE,URINE CLEAR (CLEAR); BLOOD, URINE 1+ (NEGATIVE); RBC,URINE 0-5 (RARE) /HPF (0-5); WBC,URINE 0-5 (RARE) /HPF (0-5)
--- NOTE | 2018-10-11 11:18 | NUR ---
patient sleeping in bed.
--- NOTE | 2018-10-11 11:30 | NUR ---
patient complaining about shaking due to anxiety. Dr. Corey made aware
--- NOTE | 2018-10-11 12:45 | NUR ---
PATIENT SLEEPING IN BED.
--- NOTE | 2018-10-11 13:52 | NUR ---
NO NEEDS STATED AT THIS TIME.
--- NOTE | 2018-10-11 15:38 | NUR ---
SPOKE WITH PATIENTS SISTER, ELSIE SLADE, AT #[phone]. INFORMED HER THAT I COULD NOT GIVE ANY INFORMATION OVER THE PHONE. SHE STATED UNDERSTANDING AND SAID SHE WOULD TRY AND COME BY THE HOSPITAL.
[2018-10-11] MEDS ORDERED: DEXT 5% /NACL 0.9% 1,000 ML IV SCH (15:41)
[2018-10-11] MEDS ORDERED: ZOLPIDEM 5 MG TAB PO PRN (15:45)
[2018-10-11] MEDS ORDERED: DOCUSATE SODIUM 100 MG GELCAP PO PRN (15:45)
[2018-10-11] MEDS ORDERED: ACETAMINOPHEN 325 MG TAB PO PRN (15:45)
[2018-10-11] MEDS ORDERED: NITROGLYCERIN 0.4 MG TAB SL PRN (15:45)
[2018-10-11] MEDS ORDERED: ONDANSETRON 4 MG/2 ML VIAL IM/IVP PRN (15:45)
[2018-10-11] MEDS ORDERED: PROMETHAZINE 25 MG/ML VIAL IVP PRN (15:55)
--- NOTE | 2018-10-11 16:30 | NUR ---
RECEIVED PATIENT FROM PROFESSOR OF SURGERY, REHAN, FOR CONTINUITY OF CARE. PATIENT IS AAOX4, ABLE TO FOLLOW COMMANDS AND MAKE NEEDS KNOWN. PATIENT SKIN IS INTACT, SHE HAS A PERIPHERAL IV SITE TO R. AC, 20 GAUGE, ASYMPTOMATIC AND PATENT. SHE IS ON ROOM AIR, BREATHING EVEN AND UNLABORED. ST ON MONITOR, DENIES PAIN. SHE HAS SLIGHT TREMORS AT THIS TIME. SAFETY PRECAUTIONS AND ALARMS ASSESSED AND ENFORCED. CALL LIGHT WITHIN REACH. WILL CONTINUE TO MONITOR
--- NOTE | 2018-10-11 16:32 | NUR ---
PATIENT TAKEN TO ICU ADMITTED TO BED [address] DENISE. REPORT GIVEN TO RN. PATIENT STABLE DURING TRANSFER.
[2018-10-11] MEDS: LORazepam 2 MG/ML VIAL IVP PRN (16:35)
[2018-10-11] MEDS ORDERED: NACL 0.9% 1,000 ML IV SCH (16:40)
--- NOTE | 2018-10-11 16:43 | NUR ---
DR. HDZ IN TO SEE AND EXAMINE PATIENT, WILL FOLLOW UP ON ANY ORDERS.
[2018-10-11 16:48] LABS: FREE T4 (FREE THYROXINE) 0.84 ng/dL (0.76-1.46); MAGNESIUM 1.7 mg/dL (1.8-2.4); PHOSPHORUS 2.8 mg/dL (2.5-4.9); THYROID STIMULATING HORMONE 1.2 uIU/mL (0.34-3.74)
--- NOTE | 2018-10-11 16:53 | NUR ---
DR. PENDLETON IN TO SEE AND EXAMINE PATIENT, UPDATED ON PATIENT'S CONDITION. WILL FOLLOW UP ON ANY ORDERS.
[2018-10-11] MEDS: NACL 0.9% 1,000 ML IV SCH (17:36)
--- NOTE | 2018-10-11 17:42 | NUR ---
DR. HDZ AT BEDSIDE FOR INSERTION OF CENTRAL LINE, TECH AT BEDSIDE, CONSENT SIGNED. NO DISTRESS AT THIS TIME, WILL CONTINUE TO MONITOR.
[2018-10-11] MEDS ORDERED: LIDOCAINE MPF 1% 5mL VIAL INJ SCH (17:55)
[2018-10-11 18:00] VITALS: BP 124/70
[2018-10-11] MEDS ORDERED: MULTIVITAMIN-12 10 ML, THIAMINE 100 MG, MAGNESIUM SULFATE 50% 2,000 MG, FOLIC ACID 1 MG... IV SCH ×5 (18:00)
[2018-10-11] MEDS ORDERED: POTASSIUM CHLORIDE 10 MEQ TABER PO SCH (18:00)
[2018-10-11] MEDS ORDERED: LIDOCAINE MPF 1% 5mL VIAL ONE (18:03)
--- NOTE | 2018-10-11 18:18 | NUR ---
CENTRAL LINE PLACEMENT PROCEDURE COMPLETE, PATIENT TOLERATED WELL.
[2018-10-11] MEDS: MORPHINE SULFATE 2 MG/ML SYR IVP PRN ×2 (18:54→23:09)
--- NOTE | 2018-10-11 19:01 | NUR ---
ENDORSED CONTINUITY OF CARE TO STORE SALES LEADER RNNATA. NO SIGNS OF DISTRESS NOTED
--- NOTE | 2018-10-11 19:03 | NUR ---
RECEIVED REPORT FROM AM SHIFT. PT AO X4. ABLE TO VERBALIZE NEEDS. FOLLOWS COMMANDS. LUNG SOUNDS CLEAR BILAT. NO SOB NOTED. ST ON MONITOR. DENIES CHEST PAIN. REGULAR DIET. BOWEL SOUNDS ACTIVE X 4 QUADRANTS. CONTINENT TO BOWEL AND BLADDER. RIGHT IJ DRESSING INTACT PATENT. RIGHT AC 20 G. DRESSING INTACT. BED IN LOWEST POSITION. CALL LIGHT WITHIN REACH.
[2018-10-11 20:00] VITALS: BP 130/98
[2018-10-11] MEDS: LORazepam 1 MG TAB PO SCH ×2 (20:05→23:09)
[2018-10-11] MEDS: cloNIDine 0.1 MG TAB PO SCH (20:06)
[2018-10-11] MEDS: HYDROcodone/APAP 5/325 MG 1 TAB TAB PO PRN (20:06)
--- NOTE | 2018-10-11 20:06 | NUR ---
PT CO PAIN RIGHT NECK 02/10 AT THIS TIME. ADMINISTERED NORCO 5MG PO. WILL REEVALUATE EFFECTIVENESS
--- NOTE | 2018-10-11 20:37 | NUR ---
ULTRASOUND AT BEDSIDE AT THIS TIME
[2018-10-11] MEDS ORDERED: ATORVASTATIN 20 MG TAB PO SCH (21:00)
[2018-10-11] MEDS ORDERED: FLUoxetine 20 MG CAP PO SCH (21:00)
[2018-10-11] MEDS ORDERED: METOPROLOL 25 MG TAB PO SCH (21:00)
[2018-10-11] MEDS ORDERED: LORazepam 1 MG TAB PO SCH (21:00)
[2018-10-11 22:00] VITALS: BP 139/84
--- NOTE | 2018-10-11 23:16 | NUR ---
PT C/O PAIN 9/10 TO NECK. WILL ADMINISTER MORPHINE IVP AND REEVALUATE
[2018-10-12] VITALS (8 sets, daily range): BP systolic 101–140; BP diastolic 58–78
[2018-10-12] MEDS: HYDROcodone/APAP 5/325 MG 1 TAB TAB PO PRN (02:22)
--- NOTE | 2018-10-12 02:55 | NUR ---
PT C/O PAIN 6/10 TO NECK AREA. ADMINISTERED NORCO PO. WILL REEVALUATE PAIN LEVELS.
[2018-10-12] MEDS: MORPHINE SULFATE 2 MG/ML SYR IVP PRN (03:56)
[2018-10-12] MEDS: LORazepam 1 MG TAB PO SCH (03:56)
--- NOTE | 2018-10-12 04:00 | NUR ---
PT C/O PAIN 8/10 TO NECK. WILL ADMINISTER MORPHINE IVP
--- NOTE | 2018-10-12 05:03 | NUR ---
LAB AT BEDSIDE AT THIS TIME. BLOOD DRAW VIA CENTRAL LINE PERFORMED.
--- NOTE | 2018-10-12 06:40 | NUR ---
DR HDZ AT BEDSIDE AT THIS TIME UPDATED ON PTS CURRENT CONDITION. WILL CONTINUE TO FOLLOW UP ANY ADDITIONAL ORDERS.
[2018-10-12] MEDS: NACL 0.9% 1,000 ML IV SCH (06:41)
--- NOTE | 2018-10-12 07:08 | NUR ---
ENDORSED CARE TO INCOMING SHIFT FOR CONTINUITY OF CARE. BED IN LOWEST POSITION. CALL LIGHT WITHIN REACH. NO SIGNS OF ACUTE DISTRESS NOTED.
--- NOTE | 2018-10-12 07:09 | NUR ---
RECEIVED REPORT FROM GROUNDS MANAGER NURSE AT BEDSIDE, PT IS AAOX4, ABLE TO FOLLOW COMMANDS AND MAKE NEEDS KNOWN. VSS, DENIES PAIN, NO S/S OF DISTRESS, CLEAR LUNG SOUNDS LUCIA, ON RA, O2 SAT 94%, DENIES CHEST PAIN, SR ON POLISHING WHEEL SETTER, SOFT ABDOMEN WITH ACTIVE BOWEL SOUNDS, CONTINENT WITH B&B'S, ABLE TO MOVE ALL EXTREMITIES, SKIN IS WARM AND DRY TO TOUCH, NO OPEN WOUND PRESENT, CENTRAL LINE TO RIJ, TLC, PATENT, RUNNING BANANA BAG AT 40 ML/HR, AND NS AT 80 ML/HR, HOB ELEVATED TO 30 DEGREES, SAFETY MEASURES IN PLACE, CALL LIGHT WITHIN REACH, WILL CONTINUE TO MONITOR.
[2018-10-12] MEDS: cloNIDine 0.1 MG TAB PO SCH (08:45)
[2018-10-12] MEDS ORDERED: LISINOPRIL 5 MG TAB PO SCH (09:00)
[2018-10-12] MEDS ORDERED: ASPIRIN 81 MG TAB.CHEW PO SCH (09:00)
[2018-10-12] MEDS ORDERED: PANTOPRAZOLE 40 MG INJ VIAL IVP SCH (09:00)
--- NOTE | 2018-10-12 09:00 | NUR ---
SCHEDULED MEDICATION GIVEN, PT TOLERATED WELL, ABLE TO SWALLOW PILLS WHOLE, NO ADVERSE EFFECTS.
--- NOTE | 2018-10-12 09:25 | NUR ---
NEEDLE MOLDER FROM [facility] CALLED. STATES PATIENT IS A PROMED PT. INFORMED HER THAT PT. WAS CHANGED TO TELE STATUS THIS AM. NO BED AVAILABLE AT THIS TIME AT [facility].
[2018-10-12 09:49] LABS: BASOPHILS # (AUTO) 0.1 K/uL (0.00-0.22); BASOPHILS % (AUTO) 1.7 % (0.0-2.0); EOSINOPHILS % (AUTO) 0.3 % (0.0-4.0); HEMATOCRIT 38.6 % (36-48); HEMOGLOBIN 12.7 g/dL (12.0-16.0); LYMPHOCYTES % (AUTO) 16.5 % (20.5-51.1); MEAN CORPUSCULAR HEMOGLOBIN 31 pg (27-31); MEAN CORPUSCULAR HGB CONC 33 g/dL (33-37); MEAN CORPUSCULAR VOLUME 93.6 fL (80-94); MONOCYTES # (AUTO) 0.5 K/uL (0.8-1.0); MONOCYTES % (AUTO) 7.6 % (1.7-9.3); NEUTROPHILS # (AUTO) 4.4 K/uL (1.8-7.7); NEUTROPHILS % (AUTO) 73.9 % (42.2-75.2); PLATELET COUNT (AUTO) 212 K/uL (140-450); RED BLOOD CELL COUNT(AUTO) 4.12 MIL/uL (4.20-5.40); RED CELL DISTRIBUTION WIDTH 14.3 % (11.6-13.7)
[2018-10-12 10:33] LABS: CHOL/HDL RATIO 1.8 (1-4.5); MAGNESIUM 1.9 mg/dL (1.8-2.4)
[2018-10-12 10:46] LABS: ANION GAP 14.4 (8-16); CARBON DIOXIDE 18.2 mmol/L (21-32); CREATININE 0.6 mg/dL (0.6-1.3); POTASSIUM 3.6 mmol/L (3.5-5.1)
--- NOTE | 2018-10-12 11:48 | NUR ---
PATIENT HAS BEEN SCREENED AND CATEGORIZED LOW NUTRITION RISK. PATIENT WILL BE SEEN WITHIN 7 DAYS OF ADMISSION. 10/18/18 PAUL BROWN MBA, RD
--- NOTE | 2018-10-12 12:00 | NUR ---
PT IS RESTING IN BED, STATED TIRED, NO FEELING TO EAT LUNCH AT THIS TIME, NO S/S OF DISTRESS, VSS, DENIED PAIN.
--- NOTE | 2018-10-12 13:45 | NUR ---
[facility] COORDINATOR, MICHAELA HOWE, PT IS GOING TO TELEMETRY UNIT ROOM 609A, ACCEPTING PHYSICIAN IS DR. VILLALOBOS.
[2018-10-12] MEDS ORDERED: PHE25I IVP (13:55)
[2018-10-12] MEDS ORDERED: DOCU-299 PO (13:55)
[2018-10-12] MEDS ORDERED: PHOS1PDR4 PO (13:55)
[2018-10-12] MEDS ORDERED: FLUO-348 PO (13:55)
[2018-10-12] MEDS ORDERED: CLON0.1T42 PO (13:55)
[2018-10-12] MEDS ORDERED: LIB5 PO (13:55)
[2018-10-12] MEDS ORDERED: FAMO-90 PO (13:55)
[2018-10-12] MEDS ORDERED: ATI2I IVP (13:55)
[2018-10-12] MEDS ORDERED: ROC2I IV (14:01)
--- NOTE | 2018-10-12 14:38 | NUR ---
SPOKE TO PT REGARDING FLU SHOT BEFORE DISCHARGE, PT REFUSED AND STATED WOULD LIKE TO DO IT IN [facility].
--- NOTE | 2018-10-12 14:40 | NUR ---
LEFT MESSAGE WITH PROMED WEEKEND INSPECTOR CASING ([phone]) FOR AMBULANCE AUTH. #.
--- NOTE | 2018-10-12 15:10 | NUR ---
STILL NO [facility] FROM [facility]. CALLED [phone] LEFT MESSAGE FOR PRUDENCE BRAUN FOR NEED FOR AMB. AUTH. FOR TRANSFER TO CONTRACTED FACILITY [facility].
--- NOTE | 2018-10-12 16:15 | NUR ---
SPOKE TO HELADIO FROM [facility]. INFORMED THAT WE DON'T HAVE AN AMB. AUTH. # [id number]. STATES THEY WILL TRANSPORT PT. TO [facility]. ETA IS 2 HRS.
[2018-10-12] MEDS: LORazepam 2 MG/ML VIAL IVP PRN (16:18)
--- NOTE | 2018-10-12 16:27 | NUR ---
REPORT GIVEN TO ESSIE CID AT [facility] [place], PT PICKED UP TIME AT 1830.
[2018-10-12] MEDS ORDERED: SODIUM PHOS / POTASSIUM PHOS 1 PKT PDR PO SCH (16:30)
--- NOTE | 2018-10-12 17:00 | NUR ---
PT IS PICKED UP BY [facility], DISCHARGE DOCUMENTATION SIGNED, DISCHARGE PACKAGE GAVE TO [facility], ALL BELONGS GOES WITH PT, PT'S V/S STABLE, DENIES PAIN, CENTRAL LINE FLUSHED AND CLAMPED, PT LEFT HOSPITAL VIA GURNEY WITHIN ANY INCIDENT.
== END 2018-10-12 17:00 | disposition short-term general hospital (02) | DRG 871 ==
LOC: MED 08:55 → MIC 15:41
PROVIDERS: ADMIT General Practice; ATTEND General Practice
PROC: 02HV33Z Insertion of Infusion Device into Superior Vena Cava, Percutaneous Approach (ICD-10-PCS; principal; 2018-10-11)
PROC: B548ZZA Ultrasonography of Superior Vena Cava, Guidance (ICD-10-PCS; 2018-10-11)
DX: A41.9 Sepsis, unspecified organism (principal); G92 Toxic encephalopathy; E87.2 Acidosis; F10.239 Alcohol dependence with withdrawal, unspecified; N39.0 Urinary tract infection, site not specified; I25.10 Atherosclerotic heart disease of native coronary artery without angina pectoris; J44.9 Chronic obstructive pulmonary disease, unspecified; E83.42 Hypomagnesemia; E87.6 Hypokalemia; E83.39 Other disorders of phosphorus metabolism; E86.0 Dehydration; F41.9 Anxiety disorder, unspecified; Z83.3 Family history of diabetes mellitus; Z82.3 Family history of stroke; Z81.8 Family history of other mental and behavioral disorders; Z84.89 Family history of other specified conditions; Z91.19 Patient's noncompliance with other medical treatment and regimen
CPT/HCPCS: 36415; 71045; 76700; 80048; 80053; 80305; 81001; 82140; 82150; 83036; 83605; 83690; 83735; 83880; 84100; 84439; 84443; 84484; 85025; 85610; 85730; 87040; 87081; 87086; 93005; 96361; 96374; 96375; 99285; A9153; C9113; G0480; G0482; J0696; J1642; J2001; J2060; J2270; J3411; J3475; J3490; J7030; J7042; J7060; Q0092

== ENCOUNTER 2019-02-19 21:18 | Emergency (ER) | payer OTHER, MEDICAID ==
[~2019-02-19] VITALS: Ht 157.5 cm; Wt 59.0 kg
[~2019-02-19 21:18] MED LIST changes: +ATI2I IVP; +CLON0.1T42 PO; +DOCU-299 PO; +FAMO-90 PO; +FLUO-348 PO; -FLUO40CA6 PO; +LIB5 PO; +PHE25I IVP; +PHOS1PDR4 PO; +ROC2I IV
--- NOTE | 2019-02-19 21:18 | NUR ---
ABIODUN JOLLEY. TAKEN TO BED 1
[2019-02-19 21:23] VITALS: BP 139/96
--- NOTE | 2019-02-19 21:28 | NUR ---
Dr. Mcfarland examining patient.
[2019-02-19] MEDS ORDERED: diphenhydrAMINE 50 MG/ML VIAL IVP ONE (21:40)
[2019-02-19] MEDS ORDERED: NACL 0.9% 2,000 ML IV ONE (21:40)
[2019-02-19] MEDS ORDERED: METOCLOPRAMIDE 10 MG/2 ML INJ VIAL IVP ONE (21:40)
[2019-02-19 21:54] LABS: EOSINOPHILS % (AUTO) 0.1 % (0.0-4.0); HEMATOCRIT 44.9 % (36-48); LYMPHOCYTES # (AUTO) 1.8 K/uL (2.5-16.5); LYMPHOCYTES % (AUTO) 36.3 % (20.5-51.1); MEAN CORPUSCULAR HEMOGLOBIN 31 pg (27-31); MEAN CORPUSCULAR HGB CONC 33 g/dL (33-37); MEAN CORPUSCULAR VOLUME 93.1 fL (80-94); MONOCYTES # (AUTO) 0.2 K/uL (0.8-1.0); MONOCYTES % (AUTO) 3.5 % (1.7-9.3); NEUTROPHILS % (AUTO) 59.1 % (42.2-75.2); PLATELET COUNT (AUTO) 345 K/uL (140-450); RED BLOOD CELL COUNT(AUTO) 4.82 MIL/uL (4.20-5.40); RED CELL DISTRIBUTION WIDTH 15.5 % (11.6-13.7)
--- NOTE | 2019-02-19 22:06 | NUR ---
PT TO ED WITH C/O ETOH INTOXICATION. PT HAS CLEAR SPEECH AND IS ABLE TO COMMUNICATE WITHOUT ANY DEFECITS. OBVIOUS ETOH ODOR NOTED. PER PT "I WAS ON A S DAY BINGE OF DRINKING AND I CALLED THE AMBULANCE BECAUSE I WAS SCARED" PT IN BED, AT BEDSIDE. NO DISTRESS NOTED.
[2019-02-19 22:07] LABS: PROTHROMBIN TIME 9.9 secs (10.8-13.4)
[2019-02-19 22:08] LABS: ANION GAP 13.4 (8-16); CARBON DIOXIDE 26.4 mmol/L (21-32); CHLORIDE 108 mmol/L (98-107); CREATININE 0.7 mg/dL (0.6-1.3); GFR ARICAN-AMERICAN 111 mL/min (>90); GLUCOSE 103 mg/dL (74-106); POTASSIUM 3.8 mmol/L (3.5-5.1); SODIUM SERUM 144 mmol/L (136-145); UREA NITROGEN, BLOOD 10 mg/dL (7-18)
[2019-02-19 22:16] LABS: ALBUMIN 3.6 g/dL (3.4-5.0); ASPARTATE AMINOTRANSFERASE 27 U/L (15-37); TOTAL BILIRUBIN 0.5 mg/dL (0.0-1.0)
[2019-02-19 22:17] LABS: SALICYLATE < 2.8 mg/dL (2.8-20.0)
[2019-02-19 22:18] LABS: ACETAMINOPHEN < 0.5 ug/ml (10-30)
[2019-02-19 23:27] LABS: BARBITURATE, URINE NEG. ng/ml (NEG <=200); BENZODIAZEPINE, URINE NEG. ng/mL (NEG <=200); CANNABINOID, URINE NEG. ng/mL (NEG <=50); COCAINE, URINE NEG. ng/mL (NEG <=300); OPIATE, URINE NEG. ng/mL (NEG <=2000); PHENCYCLIDINE SCREEN,URINE NEG. ng/mL (NEG <=25)
[2019-02-19] MEDS ORDERED: LORazepam 2 MG/ML VIAL IVP ONE (23:30)
--- NOTE | 2019-02-19 23:50 | NUR ---
COVERING PRIMARY RN. PT PROVIDED WITH WARM BLANKET. PLACED IN POSITION OF COMFORT. PT EXPRESSES FEELING MUCH BETTER. VSS. CALL LIGHT LEFT WITHIN REACH.
--- NOTE | 2019-02-20 01:05 | NUR ---
PT ASLEEP, AROUSABLE TO VOICE. DENIES ANY PAIN. REPORTS FEELING BETTER AFTER MEDICATION. REMAINS ATTACHED TO CONTINOUS CARDAIC MONITORING. VITALS REMAIN STABLE. WILL CONTINUE TO ASSESS.
--- NOTE | 2019-02-20 02:13 | NUR ---
SPOKE WITH LIZ, ON HIS WAY TO PICK PT UP.
--- NOTE | 2019-02-20 02:25 | NUR ---
IV removed, catheter intact and site benign. Applied folded 4x4 gauze and tape to stop bleeding.
--- NOTE | 2019-02-20 02:25 | NUR ---
Patient discharged with v/s stable. Written and verbal after care instructions given and explained. Patient alert, oriented and verbalized understanding of instructions. Ambulatory with steady gait. All questions addressed prior to discharge. ID band removed. Patient advised to follow up with PMD. Rx of ATIVAN, REGLAN given. Patient educated on indication of medication including possible reaction and side effects. Opportunity to ask questions provided and answered.
--- NOTE | 2019-02-20 02:25 | NUR ---
PT LEFT WITH BROTHER, LIZ, IN PRIVATE AUTO.
[2019-02-20 02:26] VITALS: BP 100/66
== END 2019-02-20 02:25 | disposition home or self-care (01) ==
LOC: MED 21:18
DX: F10.129 Alcohol abuse with intoxication, unspecified (principal); J44.9 Chronic obstructive pulmonary disease, unspecified; Z86.79 Personal history of other diseases of the circulatory system; Z88.8 Allergy status to other drugs, medicaments and biological substances; Z79.899 Other long term (current) drug therapy; Y90.8 Blood alcohol level of 240 mg/100 ml or more
CPT/HCPCS: 36415; 80053; 80305; 85025; 85610; 96361; 96374; 96375; 99283; G0480; G0482; J1200; J2060; J2765; J7030

== ENCOUNTER 2020-05-17 21:51 | Emergency (ER) | payer OTHER, MEDICAID ==
[~2020-05-17 21:51] MED LIST changes: -FLUO-348 PO; +FLUO20CA33 PO
== END 2020-05-17 23:25 ==
LOC: MED 21:51
DX: L50.9 Urticaria, unspecified (principal); Z02.89 Encounter for other administrative examinations
CPT/HCPCS: 99283

== ENCOUNTER 2021-01-18 20:43 | Emergency (ER) | payer OTHER, MEDICAID ==
[~2021-01-18] VITALS: Ht 157.5 cm; Wt 69.9 kg
[2021-01-18 20:52] VITALS: BP 145/97
--- NOTE | 2021-01-18 21:06 | NUR ---
To ED bed 10
--- NOTE | 2021-01-18 21:16 | NUR ---
received pt from triage and placed to bed 10. pt placed in gown. connected to vs monitor. 60 year old female with no med hx coming from home for c/o non productive cough x 1 week and chest tightness x 4 days. states has gotten the 2 dose of covid vaccine. states that a couple days ago, pt's roommate was hospitalized for PNA. breath sounds diminished on bilat bases. a/o x 4 gcs 15. denies n/v/d. denies headache/blurry vision.
--- NOTE | 2021-01-18 21:17 | NUR ---
xr at bedside.
--- NOTE | 2021-01-18 21:45 | NUR ---
Dr. Nieves with pt for MSE
[2021-01-18 21:59] VITALS: BP 141/91
[2021-01-18] MEDS ORDERED: guaiFENesin DM 200/20 MG-10 ML 10 ML UDC PO ONE (22:05)
[2021-01-18] MEDS ORDERED: DICYCLOMINE HCL LIQUID 20 MG, ALUMINUM HYD/MAG/SIMETHICONE 30 ML, LIDOCAINE VISCOUS 2% ... PO ONE ×3 (22:05)
[2021-01-18] MEDS ORDERED: LIDOCAINE VISCOUS 2% 20 ML UDC ONE (22:11)
[2021-01-18] MEDS ORDERED: DICYCLOMINE HCL LIQUID 10 MG/5 ML UDC ONE (22:11)
[2021-01-18] MEDS ORDERED: ALUMINUM HYD/MAG/SIMETHICONE 30 ML UDC ONE (22:11)
[2021-01-18] MEDS ORDERED: ROB PO (22:28)
[2021-01-18] MEDS ORDERED: MAG-27 PO (22:28)
[2021-01-18] MEDS ORDERED: FLUO20CA33 PO (22:28)
--- NOTE | 2021-01-18 22:51 | NUR ---
d/c with VSS. d/c education given. rx of fluoxetine, mylanta and robitussin given. opportunity to ask questions given and answered.
== END 2021-01-18 22:35 | disposition home or self-care (01) ==
LOC: MED 20:43
DX: R05 Cough (principal); F32.9 Major depressive disorder, single episode, unspecified; R11.10 Vomiting, unspecified; J44.9 Chronic obstructive pulmonary disease, unspecified; Z88.8 Allergy status to other drugs, medicaments and biological substances; Z79.899 Other long term (current) drug therapy
CPT/HCPCS: 71045; 93005; 99284

== ENCOUNTER 2023-09-17 18:11 | Emergency (ER) | payer OTHER ==
[~2023-09-17] VITALS: Ht 162.6 cm; Wt 63.5 kg
[~2023-09-17 18:11] MED LIST changes: -ATI2I IVP; +CHLO5CAP29 PO; +FLUO-402 PO; -FLUO20CA33 PO; -LIB5 PO; +LORA2SOL IVP; +MAG-27 PO; +ROB PO
[2023-09-17 18:53] VITALS: BP 137/84; PULSE 85; RESP 18; TEMP 98; O2SAT 98
[2023-09-17 20:18] LABS: APPEARANCE,URINE CLEAR (CLEAR); BILIRUBIN,URINE NEGATIVE (NEGATIVE); BLOOD, URINE TRACE-I (NEGATIVE); COLOR,URINE YELLOW (YELLOW); LEUKOCYTE ESTERASE ,URINE TRACE (NEGATIVE); NITRITE, URINE NEGATIVE (NEGATIVE); PH,URINE 6.5 (5.0-9.0); PROTEIN,URINE NEGATIVE (NEGATIVE); UGLUCOSE NEGATIVE (NEGATIVE); UROBILINOGEN,URINE 0.2 EU/dL (0.2 - 1)
[2023-09-17 20:20] LABS: BACTERIA,URINE 0-2 /HPF (None Seen); MUCUS,URINE None Seen /LPF (None Seen); RBC,URINE 0-5 /HPF (0-5); SQUAMOUS EPITHELIAL CELL,UR 0-3 (FEW) /LPF (0-3 (FEW)); WBC,URINE 0-5 /HPF (0-5)
[2023-09-17] MEDS ORDERED: BENZ100C6 PO (20:37)
[2023-09-17] MEDS ORDERED: FLUC100T PO (20:38)
[2023-09-17 20:44] LABS: FLU A ANTIGEN negative (NEGATIVE); FLU B ANTIGEN NEGATIVE (NEGATIVE)
== END 2023-09-17 20:45 | disposition home or self-care (01) ==
LOC: MED 18:11
DX: J06.9 Acute upper respiratory infection, unspecified (principal); B37.31 Acute candidiasis of vulva and vagina; Z20.822 Contact with and (suspected) exposure to COVID-19; Z79.899 Other long term (current) drug therapy
CPT/HCPCS: 71045; 81001; 87086; 99284

== ENCOUNTER 2024-01-23 08:13 | Emergency (ER) | payer OTHER ==
[~2024-01-23] VITALS: Ht 162.6 cm; Wt 63.5 kg
[~2024-01-23 08:13] MED LIST changes: +BENZ100C6 PO; +FLUC100T PO
[2024-01-23 08:21] VITALS: BP 138/70; PULSE 60; RESP 19; TEMP 96.8; O2SAT 100
[2024-01-23 08:56] LABS: APPEARANCE,URINE CLOUDY (CLEAR); BILIRUBIN,URINE NEGATIVE (NEGATIVE); BLOOD, URINE 3+ (NEGATIVE); COLOR,URINE BROWN (YELLOW); LEUKOCYTE ESTERASE ,URINE TRACE (NEGATIVE); NITRITE, URINE NEGATIVE (NEGATIVE); PROTEIN,URINE 1+ (NEGATIVE); UGLUCOSE NEGATIVE (NEGATIVE); UROBILINOGEN,URINE 0.2 EU/dL (0.2 - 1)
[2024-01-23 09:15] LABS: BACTERIA,URINE 1+ /HPF (None Seen); RBC,URINE >20 (MANY) /HPF (0-5); SQUAMOUS EPITHELIAL CELL,UR 0-3 (FEW) /LPF (0-3 (FEW))
[2024-01-23] MEDS: KETOROLAC 60 MG/2 ML VIAL IM ONE (09:31)
[2024-01-23] MEDS ORDERED: METH-1681 PO (10:52)
[2024-01-23] MEDS ORDERED: NITR100C7 PO (10:52)
[2024-01-23] MEDS ORDERED: ACET-10509 PO (10:52)
[2024-01-23 11:20] VITALS: BP 138/70; PULSE 60; RESP 19; TEMP 96.8; O2SAT 100
== END 2024-01-23 11:20 | disposition home or self-care (01) ==
LOC: MED 08:13
DX: N39.0 Urinary tract infection, site not specified (principal); Z87.442 Personal history of urinary calculi; Z79.899 Other long term (current) drug therapy
CPT/HCPCS: 74018; 81001; 87086; 96372; 99284; J1885

== ENCOUNTER 2024-06-07 18:30 | Emergency (ER) | payer OTHER ==
[~2024-06-07] VITALS: Ht 160 cm; Wt 61.0 kg
[~2024-06-07 18:30] MED LIST changes: +ACET500T99 PO; +METH-1681 PO; +NITR100C7 PO
[2024-06-07 18:49] VITALS: BP 152/86; PULSE 89; RESP 16; TEMP 98.1; O2SAT 100
[2024-06-07 19:48] LABS: APPEARANCE,URINE CLEAR (CLEAR); BILIRUBIN,URINE NEGATIVE (NEGATIVE); BLOOD, URINE NEGATIVE (NEGATIVE); COLOR,URINE YELLOW (YELLOW); LEUKOCYTE ESTERASE ,URINE 1+ (NEGATIVE); NITRITE, URINE NEGATIVE (NEGATIVE); PROTEIN,URINE NEGATIVE (NEGATIVE); UGLUCOSE NEGATIVE (NEGATIVE); UROBILINOGEN,URINE 0.2 EU/dL (0.2 - 1)
[2024-06-07] MEDS: ONDANSETRON 4 MG ODT PO ONE (20:10)
[2024-06-07 20:16] LABS: BACTERIA,URINE 1+ /HPF (None Seen); RBC,URINE 0-5 /HPF (0-5)
[2024-06-07] MEDS: KETOROLAC 60 MG/2 ML VIAL IM ONE (20:18)
[2024-06-07] MEDS ORDERED: IBUP-2213 PO (20:32)
[2024-06-07] MEDS ORDERED: METR-435 PO (20:32)
[2024-06-07] MEDS ORDERED: CIPR500T4 PO (20:32)
[2024-06-07] MEDS ORDERED: ONDA8TAB87 PO (20:32)
[2024-06-07 21:15] VITALS: BP 102/62; PULSE 73; RESP 16; TEMP 98.2; O2SAT 100
== END 2024-06-07 21:15 | disposition home or self-care (01) ==
LOC: MED 18:30
DX: N39.0 Urinary tract infection, site not specified (principal); R03.0 Elevated blood-pressure reading, without diagnosis of hypertension; Z79.899 Other long term (current) drug therapy
CPT/HCPCS: 81001; 81025; 87086; 96372; 99283; J1885; Q0162